=== PATIENT | female | born 1975 | race American Indian/Alaskan Native ===

== ENCOUNTER 2019-05-19 09:51 | Inpatient (IN) | payer OTHER ==
[2019-05-19] MEDS ORDERED: ONDANSETRON 4 MG/2 ML INJ IV ONE (10:11)
[2019-05-19 10:49] LABS: Basophils # (Auto) 0.1 K/mm3 (0.0-0.1); Basophils % (Auto) 1.1 % (0.0-1.8); Eosinophils # (Auto) 0.2 K/mm3 (0.0-0.4); Eosinophils % (Auto) 1.5 % (0.0-4.3); Hemoglobin 15.7 gm/dl (10.1-14.3); Lymphocytes # (Auto) 3.1 K/mm3 (1.2-5.4); Lymphocytes % (Auto) 25.4 % (13.4-35.0); Mean Corpuscular HGB Conc 33 % (30-34); Mean Corpuscular Volume 85 fl (79-97); Monocytes # (Auto) 0.7 K/mm3 (0.0-0.8); Monocytes % (Auto) 5.4 % (0.0-7.3); Platelet Count 374 K/mm3 (140-440); Red Blood Count 5.51 M/mm3 (3.65-5.03); Red Cell Distribution Width 14.5 % (13.2-15.2)
--- NOTE | 2019-05-19 11:13 | Emergency Department Report ---
HPI - General Chief Complaint: Arrhythmia/Palpitations Time Seen by Provider: 05/19/19 10:36 - HPI HPI: 44-year-old female presents to the emergency department with complaint of a 2 day history of palpitations, nausea with vomiting, abdominal pain and some stuttering slurred speech. The patient has a history of hyperthyroidism and has been in thyroid storm in the past and says that this appears similar to her. The patient used to live in [place] but is visiting here now from [place]. She says that she has been compliant with both her blood pressure medication and her methimazole. She also has a history of hypertension and [id number] diabetes. The patient does present with very elevated blood pressure. She denies any headache, vision change, chest pain, shortness of breath, lower extremity swelling. She has not taken anything for her symptoms prior to presentation today. ED Past Medical Hx - Past Medical History Previous Medical History?: Yes Hx Hypertension: Yes Hx Congestive Heart Failure: No Hx Diabetes: Yes Hx Asthma: No Hx COPD: No Additional medical history: Grave's Disease - Surgical History Hx Appendectomy: Yes - Social History Smoking Status: Never Smoker Substance Use Type: Marijuana - Medications Home Medications: Home Medications Medication Instructions Recorded Confirmed Last Taken Type Aspirin [Aspirin BABY CHEW TAB] 81 mg PO QDAY #30 tab.chew 04/26/15 Unknown Rx AtorvaSTATin [Lipitor] 40 mg PO QHS #30 tablet 04/26/15 Unknown Rx Ciprofloxacin HCl [Ciprofloxacin 500 mg PO Q12H #10 tab 04/26/15 Unknown Rx TAB] amLODIPine 5 mg PO QDAY #30 tablet 04/26/15 Unknown Rx atenoloL [Tenormin] 50 mg PO DAILY #30 tablet 04/26/15 Unknown Rx guaiFENesin DM [Robitussin Dm] 10 ml PO Q8H PRN 10 Days oral.liqd 04/26/15 Unknown Rx hydroCHLOROthiazide [HCTZ] 25 mg PO QDAY #30 tablet 04/26/15 Unknown Rx lisinopriL [Zestril TAB] 40 mg PO QDAY #30 tablet 04/26/15 Unknown Rx ED Review of Systems ROS: Stated complaint: RAPID HEART BEAT Other details as noted in HPI Comment: All other systems reviewed and negative Constitutional: denies: chills, fever Eyes: denies: eye pain, vision change ENT: denies: ear pain, throat pain Respiratory: denies: cough, shortness of breath Cardiovascular: palpitations. denies: chest pain, edema Gastrointestinal: abdominal pain, nausea, vomiting Genitourinary: denies: dysuria, discharge Musculoskeletal: denies: back pain, arthralgia Skin: denies: rash, lesions Neurological: other (stuttering slurred speech). denies: headache, weakness Physical Exam - Physical Exam Vital Signs: Vital Signs 05/19/19 10:02 Temperature 98.9 F Pulse Rate 92 H Respiratory 18 Rate Blood Pressure 206/116 O2 Sat by Pulse 100 Oximetry Physical Exam: GENERAL: The patient is well-developed well-nourished. HEENT: Normocephalic. Atraumatic. Patient has moist mucous membranes. EYES: Extraocular motions are intact. Pupils equal and reactive to light bilaterally. No nystagmus. NECK: Supple. Trachea is midline CHEST/LUNGS: Clear to auscultation. There is no respiratory distress noted. HEART/CARDIOVASCULAR: Regular. There is no tachycardia. ABDOMEN: Abdomen is soft. Mild generalized abdominal tenderness to palpation. No guarding. Patient has normal bowel sounds. There is no abdominal distention. SKIN: Skin is warm and dry. NEURO: The patient is awake, alert, and oriented. The patient is cooperative. No motor or sensory deficits. Patient has some stuttering slurred speech. Cranial nerves II through XII grossly intact. No pronator drift. No dysmetria. No facial asymmetry. Patient is slightly tremulous to the right upper extremity when it is extended. MUSCULOSKELETAL: There is no tenderness or deformity. There is no limitation range of motion. There is no evidence of acute injury. ED Course Vital Signs 05/19/19 10:02 Temperature 98.9 F Pulse Rate 92 H Respiratory 18 Rate Blood Pressure 206/116 O2 Sat by Pulse 100 Oximetry ED Medical Decision Making - Lab Data Result diagrams: 05/19/19 10:19 05/19/19 11:18 - EKG Data -: EKG Interpreted by Me EKG shows normal: sinus rhythm, axis, intervals, QRS complexes, ST-T waves Rate: normal - EKG Data When compared to previous EKG there are: previous EKG unavailable Interpretation: normal EKG - Radiology Data Radiology results: report reviewed, image reviewed interpreted by me: Abdominal x-ray shows nonspecific nonobstructive bowel gas NONENHANCED CT SCAN OF THE HEAD: INDICATION / CLINICAL INFORMATION: 44 years Female; Headache, slurred speech. TECHNIQUE: Routine CT head without contrast. All CT scans at this location are performed using CT dose reduction for ALARA by means of automated exposure control. COMPARISON: None. FINDINGS: BRAIN / INTRACRANIAL CONTENTS: No acute hemorrhage, mass effect, midline shift, hydrocephalus, or acute, large territorial infarct. No chronic infarct or focal atrophy. Normal brain volume and ventricular/sulcal size for age. No significant white matter abnormality. CRANIOCERVICAL JUNCTION: No significant abnormality. ORBITS: No significant abnormality of visualized orbits. SINUSES / MASTOIDS: No significant abnormality of the visualized paranasal sinuses or mastoid air cells. ADDITIONAL FINDINGS: None. IMPRESSION: Normal nonenhanced CT scan of the brain. - Medical Decision Making This patient presents to the emergency department with complaint of nausea and vomiting, some mild abdominal pain and some stuttering slurred speech that has been going on for the past 2 days. The patient also says that she has been in thyroid storm in the past and these are the symptoms that occurred previously. A CT scan of head without contrast was completed that does not show any bleed, shift, mass, ischemia, or any other acute process. The patient is a 1 on the NIH stroke scale for the mild dysarthria, even though it is more of a stuttering speech. However the patient is not a TPA candidate anyways as her symptoms began about 2 days ago and she is outside of the TPA window. Her symptoms are also not consistent with any type of large vessel occlusion. Patient's labs show some hyperglycemia with a blood sugar of 280 but there is no elevated anion gap and this does not appear to be consistent with diabetic ketoacidosis or HHNK. The TSH level is 0.023 and the free T4 is at 1.73. The patient's symptoms were inputted into the Ulrich Wurtofsky scale that came back showing impending thyroid storm. This is given her initial heart rate of 92, her nausea and vomiting, some mild agitation, some tremulousness. For these reasons the patient will be admitted to the hospital for further evaluation and treatment and was accepted for admission by the hospitalist, Dr. Ramey. - Differential Diagnosis CVA, TIA, Thyroid Storm, DKA Critical Care Time: No Critical care attestation.: If time is entered above; I have spent that time in minutes in the direct care of this critically ill patient, excluding procedure time. ED Disposition Clinical Impression: Hypertensive urgency Hypertension Qualifiers: Hypertension type: essential hypertension Qualified Code(s): I10 - Essential (primary) hypertension Thyroid storm Qualifiers: Thyrotoxicosis type: unspecified thyrotoxicosis type Qualified Code(s): E05.91 - Thyrotoxicosis, unspecified with thyrotoxic crisis or storm Disposition: OP ADMIT IP TO THIS HOSP Is pt being admited?: Yes Condition: Fair Time of Disposition: 14:15 - Assessment Assessment Interval: Baseline - Level of Consciousness 1a. Level of Consciousness: alert/keenly responsive - LOC Questions 1b. LOC Questions: answers both correctly - LOC Command 1c. LOC Commands: performs tasks correctly - Best Gaze 2. Best Gaze: normal - Visual 3. Visual: no visual loss - Facial Palsy 4. Facial Palsy: normal symmetrical movement - Motor Arm 5a. Motor Arm Left: no drift 5b. Motor Arm Right: no drift - Motor Leg 6a. Motor Leg Left: no drift 6b. Motor Leg Right: no drift - Limb Ataxia 7. Limb Ataxia: absent - Sensory 8. Sensory: normal - Best Language 9. Best Language: no aphasia - Dysarthria 10. Dysarthria: mild/moderate dysarthria - Extinction and Inattention 11. Extinction/Inattention: no abnormality - Scoring Total Score: 1 Stroke Severity: Minor Stroke
[2019-05-19 11:51] LABS: INR 0.96 (0.87-1.13)
[2019-05-19 11:53] LABS: Alanine Aminotransferase 18 units/L (7-56); Albumin 3.4 g/dL (3.9-5); BUN/Creatinine Ratio 17; Blood Urea Nitrogen 12 mg/dL (7-17); Calcium 8.8 mg/dL (8.4-10.2); Hemolysis Index 14
[2019-05-19 11:58] LABS: Free T4 (Free Thyroxine) 1.73 ng/dL (0.76-1.46)
--- NOTE | 2019-05-19 13:24 | XRay Report ---
ABDOMEN 2 VIEW(S) INDICATION / CLINICAL INFORMATION: Abd pain. COMPARISON: None available. FINDINGS: TUBES / LINES: None. BOWEL GAS PATTERN: Scattered gas in a nonobstructive fashion. No free air or significant constipation . ADDITIONAL FINDINGS: No significant additional findings. IMPRESSION: No significant abnormality. Signer Name: Chuy Barba MD Signed: 05/19/2019 1:20 PM Workstation Name: [id number]
--- NOTE | 2019-05-19 14:03 | Cat Scan Report ---
NONENHANCED CT SCAN OF THE HEAD: INDICATION / CLINICAL INFORMATION: 44 years Female; Headache, slurred speech. TECHNIQUE: Routine CT head without contrast. All CT scans at this location are performed using CT dos e reduction for ALARA by means of automated exposure control. COMPARISON: None. FINDINGS: BRAIN / INTRACRANIAL CONTENTS: No acute hemorrhage, mass effect, midline shift, hydrocephalus, or acu te, large territorial infarct. No chronic infarct or focal atrophy. Normal brain volume and ventricul ar/sulcal size for age. No significant white matter abnormality. CRANIOCERVICAL JUNCTION: No significant abnormality. ORBITS: No significant abnormality of visualized orbits. SINUSES / MASTOIDS: No significant abnormality of the visualized paranasal sinuses or mastoid air henrry ls. ADDITIONAL FINDINGS: None. IMPRESSION: Normal nonenhanced CT scan of the brain. Signer Name: Minh Herrera MD Signed: 05/19/2019 1:58 PM Workstation Name: [id number]
[2019-05-19 16:57] LABS: Amphetamine Screen,Urine PRESUMPTIVE NEGATIVE; Benzodiazepines Screen,Urine PRESUMPTIVE NEGATIVE; Cocaine Screen,Urine PRESUMPTIVE NEGATIVE; Methadone Screen,Urine PRESUMPTIVE NEGATIVE; Opiate Screen,Urine PRESUMPTIVE NEGATIVE
[2019-05-19 17:09] LABS: Cannabinoid Screen,Urine PRESUMPTIVE POSITIVE
[2019-05-19] MEDS ORDERED: ONDANSETRON 4 MG/2 ML INJ IV PRN (20:25)
[2019-05-19] MEDS ORDERED: DEXTROSE 50% IN WATER (25GM) 50 ML SYRINGE IV PRN (20:25)
[2019-05-19] MEDS ORDERED: ACETAMINOPHEN 325 MG TAB PO PRN (20:25)
--- NOTE | 2019-05-19 20:29 | History and Physical Report ---
History of Present Illness Date of admission: 05/19/19 14:16 Chief complaint: My thyroid is acting up History of present illness: 44-year-old woman with history of Graves' disease who presents to the hospital complaining of 2 days of palpitations , nausea, vomiting, abdominal pain and tremors and she feels like she is stuttering when she is speaking. The patient states that she has had thyroid storm in the past and her symptoms are consistent with hypothyroidism. She states that she is compliant with all her medications and has not run out of any of them. She takes methimazole and p ropranolol. She actually denies chest pain and denies shortness of breath. She denies fevers chills or sick contacts. Past Medical History: hypertension, other (Graves dz) Past Surgical History: appendectomy Social history: full code. denies: smoking, alcohol abuse, prescription drug abuse, IV drug use Family history: hypertension (father) Medications and Allergies Allergies Allergy/AdvReac Type Severity Reaction Status Date / Time apple Allergy Swelling Verified 04/22/15 07:14 Home Medications Medication Instructions Recorded Confirmed Last Taken Type hydroCHLOROthiazide [HCTZ] 25 mg PO QDAY #30 tablet 04/26/15 05/19/19 Unknown Rx AtorvaSTATin [Lipitor] 40 mg PO DAILY 05/19/19 05/19/19 Unknown History Benztropine [Cogentin] 1 mg PO DAILY 05/19/19 05/19/19 Unknown History Clonidine HCl [Catapres] 0.3 mg PO Q8HR 05/19/19 05/19/19 Unknown History Gabapentin [Neurontin] 300 mg PO Q8HR 05/19/19 05/19/19 Unknown History Glimepiride [Amaryl] 4 mg PO DAILY 05/19/19 05/19/19 Unknown History Metformin HCl [metFORMIN] 1,000 mg PO BIDWM 05/19/19 05/19/19 Unknown History Methimazole [Tapazole] 10 mg PO DAILY 05/19/19 05/19/19 Unknown History Perphenazine 2 mg PO TID 05/19/19 05/19/19 Unknown History Propranolol [Inderal] 80 mg PO BID 05/19/19 05/19/19 Unknown History SEROquel 100 mg PO QHS 05/19/19 05/19/19 Unknown History Sertraline [Zoloft] 100 mg PO QDAY 05/19/19 05/19/19 Unknown History amLODIPine 10 mg PO QDAY 05/19/19 05/19/19 Unknown History Review of Systems All systems: negative (As stated in HPI) Exam - Constitutional Vitals: Temp Pulse Resp BP Pulse Ox 98.9 F 100 H 16 177/107 97 05/19/19 10:02 05/19/19 18:03 05/19/19 11:49 05/19/19 18:03 05/19/19 18:03 General appearance: Present: mild distress, well-nourished - EENT Eyes: Present: PERRL ENT: hearing intact, clear oral mucosa - Neck Neck: Present: supple, normal ROM - Respiratory Respiratory effort: normal Respiratory: bilateral: CTA - Cardiovascular Rhythm: other (Tachycardic) Heart Sounds: Present: S1 & S2. Absent: rub, click - Extremities Extremities: pulses symmetrical, No edema Peripheral Pulses: within normal limits - Abdominal General gastrointestinal: Present: soft, non-tender, non-distended, normal bowel sounds Female genitourinary: Present: normal - Integumentary Integumentary: Present: clear, warm, dry - Musculoskeletal Musculoskeletal: gait normal, strength equal bilaterally - Psychiatric Psychiatric: appropriate mood/affect, intact judgment & insight - Neurologic Neurologic: CNII-XII intact, moves all extremities Results - Labs CBC & Chem 7: 05/19/19 10:19 05/19/19 11:18 Labs: Laboratory Last Values WBC 12.3 K/mm3 (4.5-11.0) H 05/19/19 10:19 RBC 5.51 M/mm3 (3.65-5.03) H 05/19/19 10:19 Hgb 15.7 gm/dl (10.1-14.3) H 05/19/19 10:19 Hct 47.0 % (30.3-42.9) H 05/19/19 10:19 MCV 85 fl (79-97) 05/19/19 10:19 MCH 29 pg (28-32) 05/19/19 10:19 MCHC 33 % (30-34) 05/19/19 10:19 RDW 14.5 % (13.2-15.2) 05/19/19 10:19 Plt Count 374 K/mm3 (140-440) 05/19/19 10:19 Lymph % (Auto) 25.4 % (13.4-35.0) 05/19/19 10:19 [place] % (Auto) 5.4 % (0.0-7.3) 05/19/19 10:19 Eos % (Auto) 1.5 % (0.0-4.3) 05/19/19 10:19 Baso % (Auto) 1.1 % (0.0-1.8) 05/19/19 10:19 Lymph # 3.1 K/mm3 (1.2-5.4) 05/19/19 10:19 [place] # 0.7 K/mm3 (0.0-0.8) 05/19/19 10:19 Eos # 0.2 K/mm3 (0.0-0.4) 05/19/19 10:19 Baso # 0.1 K/mm3 (0.0-0.1) 05/19/19 10:19 Seg Neutrophils % 66.6 % (40.0-70.0) 05/19/19 10:19 Seg Neutrophils # 8.2 K/mm3 (1.8-7.7) H 05/19/19 10:19 PT 12.9 Sec. (12.2-14.9) 05/19/19 11:18 INR 0.96 (0.87-1.13) 05/19/19 11:18 Sodium 136 mmol/L (137-145) L 05/19/19 11:18 Potassium 4.3 mmol/L (3.6-5.0) 05/19/19 11:18 Chloride 103.2 mmol/L (98-107) 05/19/19 11:18 Carbon Dioxide 19 mmol/L (22-30) L 05/19/19 11:18 Anion Gap 18 mmol/L 05/19/19 11:18 BUN 12 mg/dL (7-17) 05/19/19 11:18 Creatinine 0.7 mg/dL (0.7-1.2) 05/19/19 11:18 Estimated GFR > 60 ml/min 05/19/19 11:18 BUN/Creatinine Ratio 17 % 05/19/19 11:18 Glucose 282 mg/dL (65-100) H 05/19/19 11:18 Calcium 8.8 mg/dL (8.4-10.2) 05/19/19 11:18 Total Bilirubin 0.30 mg/dL (0.1-1.2) 05/19/19 11:18 AST 21 units/L (5-40) 05/19/19 11:18 ALT 18 units/L (7-56) 05/19/19 11:18 Alkaline Phosphatase 62 units/L (35-129) 05/19/19 11:18 Troponin T < 0.010 ng/mL (0.00-0.029) 05/19/19 11:18 Total Protein 7.1 g/dL (6.3-8.2) 05/19/19 11:18 Albumin 3.4 g/dL (3.9-5) L 05/19/19 11:18 Albumin/Globulin Ratio 0.9 % 05/19/19 11:18 TSH 0.027 mlU/mL (0.270-4.200) L 05/19/19 11:18 Free T4 1.73 ng/dL (0.76-1.46) H 05/19/19 11:18 HCG, Qual Negative (Negative) 05/19/19 10:19 Urine Opiates Screen Presumptive negative 05/19/19 Unknown Urine Methadone Screen Presumptive negative 05/19/19 Unknown Ur Barbiturates Screen Presumptive negative 05/19/19 Unknown Ur Phencyclidine Scrn Presumptive negative 05/19/19 Unknown Ur Amphetamines Screen Presumptive negative 05/19/19 Unknown U Benzodiazepines Scrn Presumptive negative 05/19/19 Unknown Urine Cocaine Screen Presumptive negative 05/19/19 Unknown U Marijuana (THC) Screen Presumptive positive 05/19/19 Unknown Drugs of Abuse Note Disclamer 05/19/19 Unknown Assessment and Plan Assessment and plan: 44-year-old woman who presents with palpitations, nausea, vomiting, nervousness CT head no acute findings Abdominal x-ray no acute findings History of Graves' disease with active hyperthyroidism Will increase dose of methimazole, continue propranolol at current dose Hypertensive urgency Optimize BP meds Intractable nausea, vomiting Most likely due to hyperthyroidism, treat underlying cause, antiemetics and IV fluids Diabetes Consistent carbohydrate diet, sliding scale insulin, check A1c Sirs without organ dysfunction, no evidence of infection, etiology is likely hyperthyroidism Preventative health counseling performed for 17 minutes Obesity encouraged weight loss and lifestyle modification DVT prophylaxis Lovenox
[2019-05-19] MEDS ORDERED: NON-FORMULARY EACH (Metformin Hcl [Metformin] 1,000 MG) PO SCH (20:30)
[2019-05-19] MEDS ORDERED: hydrALAZINE 20 MG/1 ML INJ IV PRN (20:33)
[2019-05-19] MEDS ORDERED: NON-FORMULARY EACH (Seroquel 100 MG) PO SCH (22:00)
[2019-05-19] MEDS ORDERED: NON-FORMULARY EACH (Clonidine Hcl [Catapres] 0.3 MG) PO SCH (22:00)
[2019-05-19] MEDS: QUEtiapine 100 MG TAB PO SCH (23:00)
[2019-05-19] MEDS: methIMAzole 5 MG TAB PO SCH (23:00)
[2019-05-19] MEDS: GABAPENTIN 300 MG CAP PO SCH (23:00)
[2019-05-19] MEDS: cloNIDine 0.1 MG TAB PO SCH (23:00)
[2019-05-19] MEDS: ENOXAPARIN 40 MG/0.4 ML INJ SUB-Q SCH (23:00)
[2019-05-19] MEDS: metFORMIN 500 MG TAB PO SCH (23:25)
[2019-05-19] MEDS: PROPRANOLOL LA 80 MG CAP PO SCH (23:55)
[2019-05-20] MEDS: INSULIN LISPRO 100 UNIT/ML SUB-Q SCH ×5 (00:41→22:38)
[2019-05-20] MEDS: GABAPENTIN 300 MG CAP PO SCH ×3 (06:50→22:35)
[2019-05-20] MEDS: cloNIDine 0.1 MG TAB PO SCH ×3 (06:55→22:34)
[2019-05-20] MEDS ORDERED: PERPHENAZINE 2 MG PO SCH (08:00)
[2019-05-20] MEDS: PERPHENAZINE 4 MG TAB PO SCH ×3 (08:49→22:37)
[2019-05-20] MEDS: GLIMEPIRIDE 4 MG TAB PO SCH (09:36)
[2019-05-20] MEDS: metFORMIN 500 MG TAB PO SCH ×2 (09:36→17:07)
[2019-05-20] MEDS: hydroCHLOROthiazide 25 MG TAB PO SCH (09:37)
[2019-05-20] MEDS: amLODIPine 10 MG TAB PO SCH (09:37)
[2019-05-20] MEDS: SERTRALINE 100 MG TAB PO SCH (09:37)
[2019-05-20] MEDS: BENZTROPINE 1 MG TAB PO SCH (09:38)
[2019-05-20] MEDS: methIMAzole 5 MG TAB PO SCH (09:38)
[2019-05-20] MEDS: PROPRANOLOL LA 80 MG CAP PO SCH (11:53)
--- NOTE | 2019-05-20 12:16 | Progress Note ---
Assessment and Plan Assessment and plan: Patient is 44-year-old woman who presents with palpitations, nausea, vomiting, tremors. CT head no acute findings Abdominal x-ray no acute findings History of Graves' disease with active hyperthyroidism Increased dose of methimazole, continue propranolol at current dose Hypertensive urgency Optimize BP meds Intractable nausea, vomiting Most likely due to hyperthyroidism, treat underlying cause, antiemetics and IV fluids Diabetes mellitus Consistent carbohydrate diet, sliding scale insulin, check A1c SIRS without organ dysfunction, no evidence of infection, etiology is likely hyperthyroidism Obesity encouraged weight loss and lifestyle modification DVT prophylaxis Lovenox History Interval history: nausea, vomiting,abd pain, palpitation, tremors Hospitalist Physical - Physical exam Narrative exam: GEN: Not in acute distress, lying in bed, obese HEENT: Normocephalic, atraumatic, Neck: supple, No JVD Lungs: Clear to auscultation, no crackles heart;S1 and S2 reg, tachycardia, no murmurs Abd:soft, non tender, non distended, normal bowel sounds Ext: No edema, no clubbing, no cyanosis Neuro: Awake,alert,oriented X 3, moves all ext, tremors - Constitutional Vitals: Temp Pulse Resp BP Pulse Ox 97.1 F L 82 18 139/68 96 05/20/19 07:59 05/20/19 11:53 05/20/19 07:59 05/20/19 11:53 05/20/19 07:59 General appearance: Present: obese Results - Labs CBC & Chem 7: 05/19/19 10:19 05/19/19 11:18 Labs: Laboratory Last Values WBC 12.3 K/mm3 (4.5-11.0) H 05/19/19 10:19 RBC 5.51 M/mm3 (3.65-5.03) H 05/19/19 10:19 Hgb 15.7 gm/dl (10.1-14.3) H 05/19/19 10:19 Hct 47.0 % (30.3-42.9) H 05/19/19 10:19 MCV 85 fl (79-97) 05/19/19 10:19 MCH 29 pg (28-32) 05/19/19 10:19 MCHC 33 % (30-34) 05/19/19 10:19 RDW 14.5 % (13.2-15.2) 05/19/19 10:19 Plt Count 374 K/mm3 (140-440) 05/19/19 10:19 Lymph % (Auto) 25.4 % (13.4-35.0) 05/19/19 10:19 [place] % (Auto) 5.4 % (0.0-7.3) 05/19/19 10:19 Eos % (Auto) 1.5 % (0.0-4.3) 05/19/19 10:19 Baso % (Auto) 1.1 % (0.0-1.8) 05/19/19 10:19 Lymph # 3.1 K/mm3 (1.2-5.4) 05/19/19 10:19 [place] # 0.7 K/mm3 (0.0-0.8) 05/19/19 10:19 Eos # 0.2 K/mm3 (0.0-0.4) 05/19/19 10:19 Baso # 0.1 K/mm3 (0.0-0.1) 05/19/19 10:19 Seg Neutrophils % 66.6 % (40.0-70.0) 05/19/19 10:19 Seg Neutrophils # 8.2 K/mm3 (1.8-7.7) H 05/19/19 10:19 PT 12.9 Sec. (12.2-14.9) 05/19/19 11:18 INR 0.96 (0.87-1.13) 05/19/19 11:18 Sodium 136 mmol/L (137-145) L 05/19/19 11:18 Potassium 4.3 mmol/L (3.6-5.0) 05/19/19 11:18 Chloride 103.2 mmol/L (98-107) 05/19/19 11:18 Carbon Dioxide 19 mmol/L (22-30) L 05/19/19 11:18 Anion Gap 18 mmol/L 05/19/19 11:18 BUN 12 mg/dL (7-17) 05/19/19 11:18 Creatinine 0.7 mg/dL (0.7-1.2) 05/19/19 11:18 Estimated GFR > 60 ml/min 05/19/19 11:18 BUN/Creatinine Ratio 17 % 05/19/19 11:18 Glucose 282 mg/dL (65-100) H 05/19/19 11:18 POC Glucose 290 (70-105) H 05/20/19 12:20 Hemoglobin A1c 11.8 % (4-6) H 05/20/19 Unknown Calcium 8.8 mg/dL (8.4-10.2) 05/19/19 11:18 Total Bilirubin 0.30 mg/dL (0.1-1.2) 05/19/19 11:18 AST 21 units/L (5-40) 05/19/19 11:18 ALT 18 units/L (7-56) 05/19/19 11:18 Alkaline Phosphatase 62 units/L (35-129) 05/19/19 11:18 Troponin T < 0.010 ng/mL (0.00-0.029) 05/19/19 11:18 Total Protein 7.1 g/dL (6.3-8.2) 05/19/19 11:18 Albumin 3.4 g/dL (3.9-5) L 05/19/19 11:18 Albumin/Globulin Ratio 0.9 % 05/19/19 11:18 TSH 0.027 mlU/mL (0.270-4.200) L 05/19/19 11:18 Free T4 1.73 ng/dL (0.76-1.46) H 05/19/19 11:18 HCG, Qual Negative (Negative) 05/19/19 10:19 Urine Opiates Screen Presumptive negative 05/19/19 Unknown Urine Methadone Screen Presumptive negative 05/19/19 Unknown Ur Barbiturates Screen Presumptive negative 05/19/19 Unknown Ur Phencyclidine Scrn Presumptive negative 05/19/19 Unknown Ur Amphetamines Screen Presumptive negative 05/19/19 Unknown U Benzodiazepines Scrn Presumptive negative 05/19/19 Unknown Urine Cocaine Screen Presumptive negative 05/19/19 Unknown U Marijuana (THC) Screen Presumptive positive 05/19/19 Unknown Drugs of Abuse Note Disclamer 05/19/19 Unknown Active Medications - Current Medications Current Medications: Generic Name Dose Route Start Last Admin Trade Name Freq PRN Reason Stop Dose Admin Acetaminophen 650 mg 05/19/19 20:25 Tylenol PO Q4H PRN Pain MILD(1-3)/Fever >100.5/FLORES Amlodipine Besylate 10 mg 05/20/19 10:00 05/20/19 09:37 Amlodipine PO 10 mg QDAY ADONIS Administration Atorvastatin Calcium 40 mg 05/20/19 10:00 05/20/19 09:38 Lipitor PO 40 mg DAILY ADONIS Administration Benztropine Mesylate 1 mg 05/20/19 10:00 05/20/19 09:38 Cogentin PO 1 mg DAILY ADONIS Administration Clonidine HCl 0.3 mg 05/19/19 22:00 05/20/19 06:55 Catapres PO 0.3 mg Q8HR ADONIS Administration Dextrose 50 ml 05/19/19 20:25 D50w (25gm) Syringe IV Q30MIN PRN Hypoglycemia Protocol Enoxaparin Sodium 40 mg 05/19/19 22:00 05/19/19 23:00 Enoxaparin SUB-Q 40 mg QDAY@2200 ADONIS Administration Gabapentin 300 mg 05/19/19 22:00 05/20/19 06:50 Gabapentin PO 300 mg Q8HR ADONIS Administration Glimepiride 4 mg 05/20/19 08:00 05/20/19 09:36 Amaryl PO 4 mg QDDIAB ADONIS Administration Hydralazine HCl 10 mg 05/19/19 20:33 Apresoline IV Q4HR PRN BP >160/100 Hydrochlorothiazide 25 mg 05/20/19 10:00 05/20/19 09:37 Hctz PO 25 mg QDAY ADONIS Administration Sodium Chloride 1,000 mls @ 75 mls/hr 05/19/19 20:45 Nacl 0.9% 1000 Ml IV DIRECT ADONIS Insulin Human Lispro 0 unit 05/19/19 22:00 05/20/19 09:37 Humalog SUB-Q 2 unit ACHS ADONIS Administration Protocol Metformin HCl 1,000 mg 05/19/19 20:30 05/20/19 09:36 Glucophage PO 1,000 mg BIDDIAB ADONIS Administration Methimazole 15 mg 05/19/19 21:00 05/20/19 09:38 Tapazole PO 15 mg Q24HR ADONIS Administration Ondansetron HCl 4 mg 05/19/19 20:25 05/20/19 00:04 Zofran IV 4 mg Q8H PRN Administration Nausea And Vomiting Perphenazine 2 mg 05/20/19 08:00 05/20/19 08:49 Trilafon PO 2 mg TID ADONIS Administration Propranolol HCl 160 mg 05/19/19 21:00 05/20/19 11:53 Inderal La PO 160 mg QDAY ADONIS Administration Quetiapine Fumarate 100 mg 05/19/19 22:00 05/19/19 23:00 Seroquel PO 100 mg QHS ADONIS Administration Sertraline HCl 100 mg 05/20/19 10:00 05/20/19 09:37 Zoloft PO 100 mg QDAY ADONIS Administration Sodium Chloride 10 ml 05/19/19 22:00 05/20/19 09:38 Sodium Chloride Flush Syringe 10 Ml IV 10 ml BID ADONIS Administration Sodium Chloride 10 ml 05/19/19 20:25 Sodium Chloride Flush Syringe 10 Ml IV PRN PRN LINE FLUSH
[2019-05-20] MEDS: SODIUM CHLORIDE 0.9% 1000 ML 1,000 ML IV SCH (15:02)
--- NOTE | 2019-05-20 17:51 | Consultation ---
History of Present Illness Consult date: 05/20/19 Consult reason: tachycardia History of present illness: The patient's a 44-year-old woman admitted to the hospital with complaints of nausea and vomiting for 2 days. Cardiac consultation was requested for assessment of "tachycardia". There is a report on the emergency room triage of a sensation of a rapid heart rate, but ECG on the patient's presentation was a normal sinus rhythm at 90. A review of her telemetry strips and vital signs during the period of her hospitalization shows a heart rate that averages about 80-90. The highest heart rate was a transient 100. No tachycardia is noted. Patient's comorbidities on this presentation include defined enough hyperthyroidism, which is being managed by the medical service. Past History Past Medical History: hyperthyroidism Medications and Allergies Allergies Allergy/AdvReac Type Severity Reaction Status Date / Time apple Allergy Swelling Verified 04/22/15 07:14 Home Medications Medication Instructions Recorded Confirmed Last Taken Type hydroCHLOROthiazide [HCTZ] 25 mg PO QDAY #30 tablet 04/26/15 05/19/19 Unknown Rx AtorvaSTATin [Lipitor] 40 mg PO DAILY 05/19/19 05/19/19 Unknown History Benztropine [Cogentin] 1 mg PO DAILY 05/19/19 05/19/19 Unknown History Clonidine HCl [Catapres] 0.3 mg PO Q8HR 05/19/19 05/19/19 Unknown History Gabapentin [Neurontin] 300 mg PO Q8HR 05/19/19 05/19/19 Unknown History Glimepiride [Amaryl] 4 mg PO DAILY 05/19/19 05/19/19 Unknown History Metformin HCl [metFORMIN] 1,000 mg PO BIDWM 05/19/19 05/19/19 Unknown History Methimazole [Tapazole] 10 mg PO DAILY 05/19/19 05/19/19 Unknown History Perphenazine 2 mg PO TID 05/19/19 05/19/19 Unknown History Propranolol [Inderal] 80 mg PO BID 05/19/19 05/19/19 Unknown History SEROquel 100 mg PO QHS 05/19/19 05/19/19 Unknown History Sertraline [Zoloft] 100 mg PO QDAY 05/19/19 05/19/19 Unknown History amLODIPine 10 mg PO QDAY 05/19/19 05/19/19 Unknown History Active Meds: Active Medications Acetaminophen (Tylenol) 650 mg PO Q4H PRN PRN Reason: Pain MILD(1-3)/Fever >100.5/FLORES Amlodipine Besylate (Amlodipine) 10 mg PO QDAY [facility] Last Admin: 05/20/19 09:37 Dose: 10 mg Documented by: Atorvastatin Calcium (Lipitor) 40 mg PO DAILY [facility] Last Admin: 05/20/19 09:38 Dose: 40 mg Documented by: Benztropine Mesylate (Cogentin) 1 mg PO DAILY [facility] Last Admin: 05/20/19 09:38 Dose: 1 mg Documented by: Clonidine HCl (Catapres) 0.3 mg PO Q8HR [facility] Last Admin: 05/20/19 13:07 Dose: 0.3 mg Documented by: Dextrose (D50w (25gm) Syringe) 50 ml IV Q30MIN PRN; Protocol PRN Reason: Hypoglycemia Enoxaparin Sodium (Enoxaparin) 40 mg SUB-Q QDAY@2200 [facility] Last Admin: 05/19/19 23:00 Dose: 40 mg Documented by: Gabapentin (Gabapentin) 300 mg PO Q8HR [facility] Last Admin: 05/20/19 13:07 Dose: 300 mg Documented by: Glimepiride (Amaryl) 4 mg PO QDDIAB [facility] Last Admin: 05/20/19 09:36 Dose: 4 mg Documented by: Hydralazine HCl (Apresoline) 10 mg IV Q4HR PRN PRN Reason: BP >160/100 Hydrochlorothiazide (Hctz) 25 mg PO QDAY [facility] Last Admin: 05/20/19 09:37 Dose: 25 mg Documented by: Sodium Chloride (Nacl 0.9% 1000 Ml) 1,000 mls @ 75 mls/hr IV DIRECT [facility] Last Admin: 05/20/19 15:02 Dose: 75 mls/hr Documented by: Insulin Human Lispro (Humalog) 0 unit SUB-Q ACHS [facility]; Protocol Last Admin: 05/20/19 17:40 Dose: 2 unit Documented by: Metformin HCl (Glucophage) 1,000 mg PO BIDDIAB [facility] Last Admin: 05/20/19 17:07 Dose: 1,000 mg Documented by: Methimazole (Tapazole) 15 mg PO Q24HR [facility] Last Admin: 05/20/19 09:38 Dose: 15 mg Documented by: Ondansetron HCl (Zofran) 4 mg IV Q8H PRN PRN Reason: Nausea And Vomiting Last Admin: 05/20/19 00:04 Dose: 4 mg Documented by: Perphenazine (Trilafon) 2 mg PO TID [facility] Last Admin: 05/20/19 13:08 Dose: 2 mg Documented by: Propranolol HCl (Inderal La) 160 mg PO QDAY [facility] Last Admin: 05/20/19 11:53 Dose: 160 mg Documented by: Quetiapine Fumarate (Seroquel) 100 mg PO QHS [facility] Last Admin: 05/19/19 23:00 Dose: 100 mg Documented by: Sertraline HCl (Zoloft) 100 mg PO QDAY [facility] Last Admin: 05/20/19 09:37 Dose: 100 mg Documented by: Sodium Chloride (Sodium Chloride Flush Syringe 10 Ml) 10 ml IV BID [facility] Last Admin: 05/20/19 09:38 Dose: 10 ml Documented by: Sodium Chloride (Sodium Chloride Flush Syringe 10 Ml) 10 ml IV PRN PRN PRN Reason: LINE FLUSH Review of Systems Cardiovascular: palpitations, no chest pain, no orthopnea, no rapid/irregular heart beat, no edema, no syncope, no lightheadedness, no shortness of breath Physical Examination Vital Signs Temp Pulse Resp BP Pulse Ox 98.9 F 92 H 18 206/116 100 05/19/19 10:02 05/19/19 10:02 05/19/19 10:02 05/19/19 10:02 05/19/19 10:02 General appearance: no acute distress HEENT: Positive: PERRL Neck: Positive: neck supple Cardiac: Positive: Reg Rate and Rhythm Lungs: Positive: clear to auscultation Neuro: Positive: Grossly Intact Abdomen: Positive: Soft Female genitourinary: deferred Skin: Positive: Clear Extremities: Absent: edema Results 05/19/19 10:19 05/19/19 11:18 EKG interpretations - Telemetry EKG Rhythm: Sinus Rhythm Assessment and Plan - Patient Problems (1) Tachycardia Current Visit: Yes Status: Acute Plan to address problem: There is no evident tachycardia on patient's presentation or during this hospitalization. 12-lead ECG is normal. No further cardiac workup is indicated, we'll sign off.
[2019-05-20] MEDS: ENOXAPARIN 40 MG/0.4 ML INJ SUB-Q SCH (22:34)
[2019-05-20] MEDS: QUEtiapine 100 MG TAB PO SCH (22:35)
[2019-05-21] MEDS: cloNIDine 0.1 MG TAB PO SCH (06:32)
[2019-05-21] MEDS: SODIUM CHLORIDE 0.9% 1000 ML 1,000 ML IV SCH (06:33)
[2019-05-21] MEDS: GABAPENTIN 300 MG CAP PO SCH (06:33)
[2019-05-21 06:37] LABS: Hemoglobin 14.6 gm/dl (10.1-14.3); Mean Corpuscular HGB Conc 33 % (30-34); Mean Corpuscular Volume 85 fl (79-97); Platelet Count 272 K/mm3 (140-440); Red Blood Count 5.17 M/mm3 (3.65-5.03); Red Cell Distribution Width 14.4 % (13.2-15.2)
[2019-05-21 07:01] LABS: BUN/Creatinine Ratio 18; Blood Urea Nitrogen 11 mg/dL (7-17); Calcium 8.2 mg/dL (8.4-10.2); Hemolysis Index 27
[2019-05-21] MEDS: INSULIN LISPRO 100 UNIT/ML SUB-Q SCH (09:10)
[2019-05-21] MEDS: PERPHENAZINE 4 MG TAB PO SCH (09:13)
[2019-05-21] MEDS: PROPRANOLOL LA 80 MG CAP PO SCH (09:19)
[2019-05-21] MEDS: BENZTROPINE 1 MG TAB PO SCH (09:21)
[2019-05-21] MEDS: SERTRALINE 100 MG TAB PO SCH (09:23)
[2019-05-21] MEDS: methIMAzole 5 MG TAB PO SCH (09:23)
[2019-05-21] MEDS: hydroCHLOROthiazide 25 MG TAB PO SCH (09:25)
[2019-05-21] MEDS: metFORMIN 500 MG TAB PO SCH (09:25)
[2019-05-21] MEDS: GLIMEPIRIDE 4 MG TAB PO SCH (09:25)
[2019-05-21] MEDS: amLODIPine 10 MG TAB PO SCH (09:26)
[2019-05-21 09:50] VITALS: BP 170/94
--- NOTE | 2019-05-21 11:29 | Discharge Summary ---
Providers - Providers Date of Admission: 05/19/19 14:16 Date of discharge: 05/21/19 Attending physician: KEESHA NIETO 05/19/19 20:26 Consult to Dietitian/Nutrition [CONS] Routine Physician Instructions: Reason For Exam: Reason for Consult: Diet education Primary care physician: ORACLE [facility] CONSULTANT Hospitalization Condition: Fair Disposition: DC-01 TO HOME OR SELFCARE Exam - Constitutional Vitals: Temp Pulse Resp BP Pulse Ox 97.9 F 77 18 170/94 98 05/21/19 09:45 05/21/19 09:45 05/21/19 09:45 05/21/19 09:45 05/21/19 09:45 Plan Activity: advance as tolerated Diet: low fat, low cholesterol, low salt Plan of Treatment: 1.Follow up with PCP in 1 week. Follow up with: PRIMARY CARE, [Primary Care Provider] - 3-5 Days Prescriptions: methIMAzole [Tapazole] 15 mg PO Q24HR #90 tablet
--- NOTE | 2019-05-21 14:47 | Consultation ---
History of Present Illness - Reason for Consult Consult date: 05/21/19 Reason for consult: psychiatric assessment - Chief Complaint Chief complaint: mr park is a 60 year old male, consult was done because of patient been combative, he is aaox1, he denies SI/HI and AVH. Whwn ask if he knew why he was here he said, "I cant find my glasses". sitter remain at bedside. the patient kept covering his head with the sheet.he appears agitated. ROS Constitutional:Negative for weight loss ENT: Negative for stridor Respiratory: Negative for cough All systems reviewed and are negative Past Medical Hx: Denies Psychiatric History: Previous psychiatric diagnoses: none Previous admits: denies Suicidal attempts in past: denies Past medications tried: denies Outpatient treatment: denies Substance abuse: denies Social History Lives with family Unemployed Legal hx: no Highest grade complete: 12th Family Psychiatric History None reported Mental Status Exam Appearance:anxious Behavior: cooperative. Mood: "fine Affect: Thought Process: Speech: normal, low Thought Content Harmfulness: Denies Hallucinations: denies Delusions: denies Consciousness: Alert Cognition/Memory: forget Insight/Judgment:limited Assessment agitation Recommendations: medication - start vistaril 25mg prn agitation Based on my evaluation, the patient is unable to demonstrate understanding, appreciation, or reasoning regarding their medical condition and need for treatment. At this time I do not believe that the patient has decision-making capacity. Please note that decision-making capacity can be regained, but until that time a surrogate decision maker should be appointed for the patient. The surrogate decision maker should be found using the below: 1. If the patient has a healthcare proxy, they should be contacted. 2. If there is no healthcare proxy, efforts should be made to identify an appropriate substitute decision maker (most commonly a family member or members), with the understanding that ultimately, it may be necessary to have a guardian appointed in order to facilitate legal decision making. 3. In the case of a true emergency, treatment may be provided without consent, but should be discussed with the office of senior vice president & general counsel and/or Ethics as soon as possible. In the 3 situations above, attempts to contact a substitute decision maker or the office of senior vice president & general counsel should not delay the delivery of emergent care where such delay would compromise the patient's well being. will follow patient Medications and Allergies Medications and Allergies Allergies Allergy/AdvReac Type Severity Reaction Status Date / Time apple Allergy Swelling Verified 04/22/15 07:14 Home Medications Medication Instructions Recorded Confirmed Last Taken Type hydroCHLOROthiazide [HCTZ] 25 mg PO QDAY #30 tablet 04/26/15 05/19/19 Unknown Rx AtorvaSTATin [Lipitor] 40 mg PO DAILY 05/19/19 05/19/19 Unknown History Benztropine [Cogentin] 1 mg PO DAILY 05/19/19 05/19/19 Unknown History Clonidine HCl [Catapres] 0.3 mg PO Q8HR 05/19/19 05/19/19 Unknown History Gabapentin 300 mg PO Q8HR 05/19/19 05/19/19 Unknown History Glimepiride [Amaryl] 4 mg PO DAILY 05/19/19 05/19/19 Unknown History Metformin HCl [metFORMIN] 1,000 mg PO BIDWM 05/19/19 05/19/19 Unknown History Perphenazine 2 mg PO TID 05/19/19 05/19/19 Unknown History Propranolol [Inderal] 80 mg PO BID 05/19/19 05/19/19 Unknown History SEROquel 100 mg PO QHS 05/19/19 05/19/19 Unknown History Sertraline [Zoloft] 100 mg PO QDAY 05/19/19 05/19/19 Unknown History amLODIPine 10 mg PO QDAY 05/19/19 05/19/19 Unknown History methIMAzole [Tapazole] 15 mg PO Q24HR #90 tablet 05/21/19 Unknown Rx Active Meds: Active Medications Acetaminophen (Tylenol) 650 mg PO Q4H PRN PRN Reason: Pain MILD(1-3)/Fever >100.5/FLORES Amlodipine Besylate (Amlodipine) 10 mg PO QDAY [facility] Last Admin: 05/21/19 09:26 Dose: 10 mg Documented by: Atorvastatin Calcium (Lipitor) 40 mg PO DAILY [facility] Last Admin: 05/21/19 09:25 Dose: 40 mg Documented by: Benztropine Mesylate (Cogentin) 1 mg PO DAILY [facility] Last Admin: 05/21/19 09:21 Dose: 1 mg Documented by: Clonidine HCl (Catapres) 0.3 mg PO Q8HR [facility] Last Admin: 05/21/19 06:32 Dose: 0.3 mg Documented by: Dextrose (D50w (25gm) Syringe) 50 ml IV Q30MIN PRN; Protocol PRN Reason: Hypoglycemia Enoxaparin Sodium (Enoxaparin) 40 mg SUB-Q QDAY@2200 [facility] Last Admin: 05/20/19 22:34 Dose: 40 mg Documented by: Gabapentin (Gabapentin) 300 mg PO Q8HR [facility] Last Admin: 05/21/19 06:33 Dose: 300 mg Documented by: Glimepiride (Amaryl) 4 mg PO QDDIAB [facility] Last Admin: 05/21/19 09:25 Dose: 4 mg Documented by: Hydralazine HCl (Apresoline) 10 mg IV Q4HR PRN PRN Reason: BP >160/100 Hydrochlorothiazide (Hctz) 25 mg PO QDAY [facility] Last Admin: 05/21/19 09:25 Dose: 25 mg Documented by: Sodium Chloride (Nacl 0.9% 1000 Ml) 1,000 mls @ 75 mls/hr IV DIRECT [facility] Last Admin: 05/21/19 06:33 Dose: 75 mls/hr Documented by: Insulin Human Lispro (Humalog) 0 unit SUB-Q ACHS [facility]; Protocol Last Admin: 05/21/19 09:10 Dose: 2 unit Documented by: Metformin HCl (Glucophage) 1,000 mg PO BIDDIAB [facility] Last Admin: 05/21/19 09:25 Dose: 1,000 mg Documented by: Methimazole (Tapazole) 15 mg PO Q24HR [facility] Last Admin: 05/21/19 09:23 Dose: 15 mg Documented by: Ondansetron HCl (Zofran) 4 mg IV Q8H PRN PRN Reason: Nausea And Vomiting Last Admin: 05/20/19 00:04 Dose: 4 mg Documented by: Perphenazine (Trilafon) 2 mg PO TID [facility] Last Admin: 05/21/19 09:13 Dose: 2 mg Documented by: Propranolol HCl (Inderal La) 160 mg PO QDAY [facility] Last Admin: 05/21/19 09:19 Dose: 160 mg Documented by: Quetiapine Fumarate (Seroquel) 100 mg PO QHS [facility] Last Admin: 05/20/19 22:35 Dose: 100 mg Documented by: Sertraline HCl (Zoloft) 100 mg PO QDAY [facility] Last Admin: 05/21/19 09:23 Dose: 100 mg Documented by: Sodium Chloride (Sodium Chloride Flush Syringe 10 Ml) 10 ml IV BID [facility] Last Admin: 05/21/19 09:26 Dose: 10 ml Documented by: Sodium Chloride (Sodium Chloride Flush Syringe 10 Ml) 10 ml IV PRN PRN PRN Reason: LINE FLUSH Mental Status Exam - Vital signs Last Vital Signs Temp 97.9 F 05/21/19 09:45 Pulse 77 05/21/19 09:45 Resp 18 05/21/19 09:45 BP 170/94 05/21/19 09:45 Pulse Ox 98 05/21/19 09:45 Results Result Diagrams: 05/21/19 06:08 05/21/19 06:08 Abnormal lab results 05/20/19 05/20/19 05/21/19 Range/Units 16:59 21:56 06:08 RBC 5.17 H (3.65-5.03) M/mm3 Hgb 14.6 H (10.1-14.3) gm/dl Hct 44.0 H (30.3-42.9) % Carbon Dioxide (22-30) mmol/L Creatinine (0.7-1.2) mg/dL Glucose (65-100) mg/dL POC Glucose 201 H 178 H (70-105) Calcium (8.4-10.2) mg/dL 05/21/19 05/21/19 05/21/19 Range/Units 06:08 08:54 11:50 RBC (3.65-5.03) M/mm3 Hgb (10.1-14.3) gm/dl Hct (30.3-42.9) % Carbon Dioxide 20 L (22-30) mmol/L Creatinine 0.6 L (0.7-1.2) mg/dL Glucose 203 H (65-100) mg/dL POC Glucose 234 H 272 H (70-105) Calcium 8.2 L (8.4-10.2) mg/dL All other labs normal.
--- NOTE | 2019-05-21 16:24 | Consultation ---
History of Present Illness - Reason for Consult Consult date: 05/21/19 Reason for consult: PSYCHIATRIC ASSESSMENT - Chief Complaint Chief complaint: ANXIETY, DEPRESSION - History of Present Psychiatric Illness Ms rico is a 44 year ols aaa female aaox4, he apperas olderthan her age , dress appriopriately for the weather. she stated that she came to the hospital for others things and not psy issues. she however said she has been seeing her psychiatric doctor and just had her medication refills she said she is compliant . she reports that she is eating well and sleeping and that she sometimes hear voices and sometimes thoughts of hurting herself but that is chronic and she never acts on it because she knows its not real. she reports that if she felt like acting on it she knows what to do. Diagnoses: anxiety and depression Suicide attempts or Self-harm behavior; no Prior psychiatric hospitalizations: yes Substance Abuse history:no Previous psychiatric medications tried:yes Outpatient treatment: yes PAST MEDICAL HISTORY: Family Psychiatric History None reported or documented SOCIAL HISTORY Marital Status: single Living Arrangements:self Employment Status:unemployed Access to guns/weapons: no Education: 12th History of Abuse:no Legal History: no REVIEW OF SYSTEMS Constitutional: Negative for weight loss ENT: Negative for stridor Respiratory: Negative for cough or hemoptysis All other systems reviewed and are negative MENTAL STATUS General Appearance and Behavior: quite cooperative Cooperation: Cooperative Psychomotor Behavior: within normal limits Mood: OK Affect and affective range: Congruent with stated mood Thought Process: Fluent/Logical and Goal-directed Thought Content: Within reality Speech: Normal volume and Regular rate and rhythm Intellectual Functioning Average Suicidal Ideation: Denies SI Homicidal Ideation: Denies HI Impulse Control: intact Insight and Judgment: normal insight and judgment Memory: Normal Attention: Normal Orientation: alert and oriented In order to evaluate the patient's decision-making capacity, I evaluated for phan areas of decision-making. These areas are understanding (of relevant facts about his own health), expressing a choice, appreciation (of how the relevant facts have an impact on the choice), and explaining his reasoning behind the choice (i.e. Pros vs Cons of choice). The results of this evaluation are below: Based on my evaluation, the patient is able to demonstrate understanding, appreciation and reasoning regarding their medical condition and need for treatment. At this time I do believe that the patient has decision-making capacity. Recommendation Maintain good and stable mental health. Plan of Treatment:patient will continue her current treatment regimen The patient should be compliant with medications, not to use drugs and not to drink alcohol. The patient understands that if suicidal ideas, homicidal ideas, or any endangering thoughts arise, the patient should immediately seek for emergent assistance including but not limited to crisis hot line and emergency room. Follow up with outpatient Psychiatrist and PCP within 7 - 14 days of discharge. Medications and Allergies Allergies Allergy/AdvReac Type Severity Reaction Status Date / Time apple Allergy Swelling Verified 04/22/15 07:14 Home Medications Medication Instructions Recorded Confirmed Last Taken Type hydroCHLOROthiazide [HCTZ] 25 mg PO QDAY #30 tablet 04/26/15 05/19/19 Unknown Rx AtorvaSTATin [Lipitor] 40 mg PO DAILY 05/19/19 05/19/19 Unknown History Benztropine [Cogentin] 1 mg PO DAILY 05/19/19 05/19/19 Unknown History Clonidine HCl [Catapres] 0.3 mg PO Q8HR 05/19/19 05/19/19 Unknown History Gabapentin 300 mg PO Q8HR 05/19/19 05/19/19 Unknown History Glimepiride [Amaryl] 4 mg PO DAILY 05/19/19 05/19/19 Unknown History Metformin HCl [metFORMIN] 1,000 mg PO BIDWM 05/19/19 05/19/19 Unknown History Perphenazine 2 mg PO TID 05/19/19 05/19/19 Unknown History Propranolol [Inderal] 80 mg PO BID 05/19/19 05/19/19 Unknown History SEROquel 100 mg PO QHS 05/19/19 05/19/19 Unknown History Sertraline [Zoloft] 100 mg PO QDAY 05/19/19 05/19/19 Unknown History amLODIPine 10 mg PO QDAY 05/19/19 05/19/19 Unknown History methIMAzole [Tapazole] 15 mg PO Q24HR #90 tablet 05/21/19 Unknown Rx Active Meds: Active Medications Acetaminophen (Tylenol) 650 mg PO Q4H PRN PRN Reason: Pain MILD(1-3)/Fever >100.5/FLORES Amlodipine Besylate (Amlodipine) 10 mg PO QDAY [facility] Last Admin: 05/21/19 09:26 Dose: 10 mg Documented by: Atorvastatin Calcium (Lipitor) 40 mg PO DAILY [facility] Last Admin: 05/21/19 09:25 Dose: 40 mg Documented by: Benztropine Mesylate (Cogentin) 1 mg PO DAILY [facility] Last Admin: 05/21/19 09:21 Dose: 1 mg Documented by: Clonidine HCl (Catapres) 0.3 mg PO Q8HR [facility] Last Admin: 05/21/19 06:32 Dose: 0.3 mg Documented by: Dextrose (D50w (25gm) Syringe) 50 ml IV Q30MIN PRN; Protocol PRN Reason: Hypoglycemia Enoxaparin Sodium (Enoxaparin) 40 mg SUB-Q QDAY@2200 [facility] Last Admin: 05/20/19 22:34 Dose: 40 mg Documented by: Gabapentin (Gabapentin) 300 mg PO Q8HR [facility] Last Admin: 05/21/19 06:33 Dose: 300 mg Documented by: Glimepiride (Amaryl) 4 mg PO QDDIAB [facility] Last Admin: 05/21/19 09:25 Dose: 4 mg Documented by: Hydralazine HCl (Apresoline) 10 mg IV Q4HR PRN PRN Reason: BP >160/100 Hydrochlorothiazide (Hctz) 25 mg PO QDAY [facility] Last Admin: 05/21/19 09:25 Dose: 25 mg Documented by: Sodium Chloride (Nacl 0.9% 1000 Ml) 1,000 mls @ 75 mls/hr IV DIRECT [facility] Last Admin: 05/21/19 06:33 Dose: 75 mls/hr Documented by: Insulin Human Lispro (Humalog) 0 unit SUB-Q ACHS [facility]; Protocol Last Admin: 05/21/19 09:10 Dose: 2 unit Documented by: Metformin HCl (Glucophage) 1,000 mg PO BIDDIAB [facility] Last Admin: 05/21/19 09:25 Dose: 1,000 mg Documented by: Methimazole (Tapazole) 15 mg PO Q24HR [facility] Last Admin: 05/21/19 09:23 Dose: 15 mg Documented by: Ondansetron HCl (Zofran) 4 mg IV Q8H PRN PRN Reason: Nausea And Vomiting Last Admin: 05/20/19 00:04 Dose: 4 mg Documented by: Perphenazine (Trilafon) 2 mg PO TID [facility] Last Admin: 05/21/19 09:13 Dose: 2 mg Documented by: Propranolol HCl (Inderal La) 160 mg PO QDAY [facility] Last Admin: 05/21/19 09:19 Dose: 160 mg Documented by: Quetiapine Fumarate (Seroquel) 100 mg PO QHS [facility] Last Admin: 05/20/19 22:35 Dose: 100 mg Documented by: Sertraline HCl (Zoloft) 100 mg PO QDAY [facility] Last Admin: 05/21/19 09:23 Dose: 100 mg Documented by: Sodium Chloride (Sodium Chloride Flush Syringe 10 Ml) 10 ml IV BID [facility] Last Admin: 05/21/19 09:26 Dose: 10 ml Documented by: Sodium Chloride (Sodium Chloride Flush Syringe 10 Ml) 10 ml IV PRN PRN PRN Reason: LINE FLUSH Mental Status Exam - Vital signs Last Vital Signs Temp 97.9 F 05/21/19 09:45 Pulse 77 05/21/19 09:45 Resp 18 05/21/19 09:45 BP 170/94 05/21/19 09:45 Pulse Ox 98 05/21/19 09:45 Results Result Diagrams: 05/21/19 06:08 05/21/19 06:08 Abnormal lab results 05/20/19 05/20/19 05/21/19 Range/Units 16:59 21:56 06:08 RBC 5.17 H (3.65-5.03) M/mm3 Hgb 14.6 H (10.1-14.3) gm/dl Hct 44.0 H (30.3-42.9) % Carbon Dioxide (22-30) mmol/L Creatinine (0.7-1.2) mg/dL Glucose (65-100) mg/dL POC Glucose 201 H 178 H (70-105) Calcium (8.4-10.2) mg/dL 05/21/19 05/21/19 05/21/19 Range/Units 06:08 08:54 11:50 RBC (3.65-5.03) M/mm3 Hgb (10.1-14.3) gm/dl Hct (30.3-42.9) % Carbon Dioxide 20 L (22-30) mmol/L Creatinine 0.6 L (0.7-1.2) mg/dL Glucose 203 H (65-100) mg/dL POC Glucose 234 H 272 H (70-105) Calcium 8.2 L (8.4-10.2) mg/dL All other labs normal.
== END 2019-05-21 15:00 | disposition home or self-care (01) | DRG 304 ==
LOC: ED 09:51 → 4A 14:16
PROVIDERS: ADMIT Internal Medicine; ATTEND Internal Medicine
DX: I16.0 Hypertensive urgency (principal); E05.01 Thyrotoxicosis with diffuse goiter with thyrotoxic crisis or storm; R65.10 Systemic inflammatory response syndrome (SIRS) of non-infectious origin without acute organ dysfunction; E11.9 Type 2 diabetes mellitus without complications; E66.9 Obesity, unspecified; I10 Essential (primary) hypertension; F12.90 Cannabis use, unspecified, uncomplicated; Z79.899 Other long term (current) drug therapy; Z68.31 Body mass index [BMI] 31.0-31.9, adult; Z71.3 Dietary counseling and surveillance; Z90.49 Acquired absence of other specified parts of digestive tract; Z82.49 Family history of ischemic heart disease and other diseases of the circulatory system
CPT/HCPCS: 36415; 70450; 74019; 80048; 80053; 80307; 82962; 83036; 84439; 84443; 84484; 84703; 85025; 85027; 85610; 87116; 93005; 93010; G0378; A9270-GY; J1650; J1815; J2405; J7030

== ENCOUNTER 2021-10-13 04:07 | Emergency (ER) | payer SELFPAY ==
[2021-10-13] MEDS ORDERED: ASPIRIN 325 MG TAB PO ONE (04:31)
--- NOTE | 2021-10-13 05:25 | XRay Report ---
CHEST 2 VIEWS INDICATION / CLINICAL INFORMATION: CHEST PAIN. COMPARISON: Chest x-ray 04/22/2015 FINDINGS: SUPPORT DEVICES: None. HEART / MEDIASTINUM: Heart size is within normal limits. LUNGS / PLEURA: Bilateral interstitial and airspace opacities are demonstrated. Interstitial opacitie s linear and more peripheral in location. No pneumothorax. BONES: No significant osseous abnormality. ADDITIONAL FINDINGS: No significant additional findings. IMPRESSION: 1. Opacities suggesting pulmonary edema, infection is not excluded. Signer Name: Flako Tavarez II, MD Signed: 10/13/2021 5:21 AM Workstation Name: [id number]
[2021-10-13 06:24] LABS: Basophils # (Auto) 0.2 K/mm3 (0.0-0.1); Eosinophils # (Auto) 0.4 K/mm3 (0.0-0.4); Eosinophils % (Auto) 2.4 % (0.0-4.3); Hematocrit 45.3 % (30.3-42.9); Hemoglobin 14.8 gm/dl (10.1-14.3); Lymphocytes # (Auto) 3.6 K/mm3 (1.2-5.4); Lymphocytes % (Auto) 21.4 % (13.4-35.0); Mean Corpuscular HGB Conc 33 % (30-34); Mean Corpuscular Volume 86 fl (79-97); Monocytes # (Auto) 0.7 K/mm3 (0.0-0.8); Monocytes % (Auto) 4.4 % (0.0-7.3); Platelet Count 420 K/mm3 (140-440); Red Blood Count 5.27 M/mm3 (3.65-5.03); Red Cell Distribution Width 14.3 % (13.2-15.2)
[2021-10-13 06:43] LABS: Alanine Aminotransferase 18 units/L (7-56); Albumin 3.7 g/dL (3.9-5); BUN/Creatinine Ratio 13; Blood Urea Nitrogen 16 mg/dL (7-17); Calcium 9.1 mg/dL (8.4-10.2); Hemolysis Index 5
[2021-10-13] MEDS ORDERED: ASPIRIN 325 MG TAB PO SCH (07:30)
--- NOTE | 2021-10-13 10:45 | Electrocardiograph Report ---
[facility] Test Date: 2021-10-13 Test Time: 04:20:13 Pat Name: JAYLON RUCKER Department: Room: Gender: F Material Control Manager: ITZEL : 1975 Requested By: ED DOC Order Number: [id number] Reading MD: Magdiel Marcial Measurements Intervals [place] Rate: 104 P: 74 DC: 139 QRS: 66 QRSD: 90 T: 50 QT: 403 QTc: 531 Interpretive Statements Sinus tachycardia Biatrial enlargement Left ventricular hypertrophy No previous ECG available for comparison Electronically Signed On 10-13-2021 10:45:10 EDT by Magdiel Marcial
[2021-10-13] MEDS ORDERED: cloNIDine 0.2 MG TAB PO ONE (15:35)
--- NOTE | 2021-10-13 15:40 | Emergency Department Report ---
ED Chest Pain HPI - General Chief Complaint: Chest Pain Stated Complaint: CHEST PAIN,NELSY Time Seen by Provider: 10/13/21 15:32 Source: patient Mode of arrival: Ambulatory Limitations: No Limitations - History of Present Illness Initial Comments: 46-year-old female who presents with chest pain has been going on for the last 24 hours intermittently progressive getting worse. Patient also reports elevated blood pressure with a systolic blood pressure more than 200 at home. Patient takes clonidine as she reports that she is very compliant with the med ication. Patient described it as pressure in the middle of her chest. Patient has been given aspirin and have EKG. No other modifying or associated factors reported. MD Complaint: chest pain - Related Data Home Medications Medication Instructions Recorded Confirmed Last Taken AtorvaSTATin [Lipitor] 40 mg PO DAILY 05/19/19 05/19/19 Unknown Benztropine [Cogentin] 1 mg PO DAILY 05/19/19 05/19/19 Unknown Gabapentin 300 mg PO Q8HR 05/19/19 05/19/19 Unknown Glimepiride [Amaryl] 4 mg PO DAILY 05/19/19 05/19/19 Unknown Metformin HCl [metFORMIN] 1,000 mg PO BIDWM 05/19/19 05/19/19 Unknown Perphenazine 2 mg PO TID 05/19/19 05/19/19 Unknown SEROquel 100 mg PO QHS 05/19/19 05/19/19 Unknown Sertraline [Zoloft] 100 mg PO QDAY 05/19/19 05/19/19 Unknown amLODIPine 10 mg PO QDAY 05/19/19 05/19/19 Unknown cloNIDine HCL [Catapres] 0.3 mg PO Q8HR 05/19/19 05/19/19 Unknown propranoloL [Inderal] 80 mg PO BID 05/19/19 05/19/19 Unknown Previous Rx's Medication Instructions Recorded Last Taken Type hydroCHLOROthiazide [HCTZ] 25 mg PO QDAY #30 tablet 04/26/15 Unknown Rx methIMAzole [Tapazole] 15 mg PO Q24HR #90 tablet 05/21/19 Unknown Rx Allergies Allergy/AdvReac Type Severity Reaction Status Date / Time apple Allergy Swelling Verified 04/22/15 07:14 Heart Score - HEART Score History: Slightly suspicious EKG: Normal Age: 45-65 Risk factors: 1-2 risk factors Troponin: < normal limit HEART Score: 2 - EKG Read Time Time EKG Completed: 16:20 EKG Read Time: 16:40 - Critical Actions Critical Actions: 0-3 pts:0.9-1.7%risk of adverse cardiac event.Candidate for discharge ED Review of Systems ROS: Stated complaint: CHEST PAIN,NELSY Other details as noted in HPI Comment: All other systems reviewed and negative Cardiovascular: chest pain, other (hypertensive urgency ) ED Past Medical Hx - Past Medical History Hx Hypertension: Yes Hx Congestive Heart Failure: No Hx Diabetes: Yes Hx Asthma: No Hx COPD: No Additional medical history: Grave's Disease - Surgical History Hx Appendectomy: Yes - Social History Smoking Status: Never Smoker - Medications Home Medications: Home Medications Medication Instructions Recorded Confirmed Last Taken Type hydroCHLOROthiazide [HCTZ] 25 mg PO QDAY #30 tablet 04/26/15 05/19/19 Unknown Rx AtorvaSTATin [Lipitor] 40 mg PO DAILY 05/19/19 05/19/19 Unknown History Benztropine [Cogentin] 1 mg PO DAILY 05/19/19 05/19/19 Unknown History Gabapentin 300 mg PO Q8HR 05/19/19 05/19/19 Unknown History Glimepiride [Amaryl] 4 mg PO DAILY 05/19/19 05/19/19 Unknown History Metformin HCl [metFORMIN] 1,000 mg PO BIDWM 05/19/19 05/19/19 Unknown History Perphenazine 2 mg PO TID 05/19/19 05/19/19 Unknown History SEROquel 100 mg PO QHS 05/19/19 05/19/19 Unknown History Sertraline [Zoloft] 100 mg PO QDAY 05/19/19 05/19/19 Unknown History amLODIPine 10 mg PO QDAY 05/19/19 05/19/19 Unknown History cloNIDine HCL [Catapres] 0.3 mg PO Q8HR 05/19/19 05/19/19 Unknown History propranoloL [Inderal] 80 mg PO BID 05/19/19 05/19/19 Unknown History methIMAzole [Tapazole] 15 mg PO Q24HR #90 tablet 05/21/19 Unknown Rx ED Physical Exam - General Limitations: No Limitations General appearance: alert, in no apparent distress - Head Head exam: Present: normal inspection - Eye Eye exam: Present: normal appearance Pupils: Present: normal accommodation - ENT ENT exam: Present: normal exam, normal orophraynx - Neck Neck exam: Present: normal inspection, full ROM. Absent: tenderness - Respiratory Respiratory exam: Present: normal lung sounds bilaterally. Absent: respiratory distress, accessory muscle use - Cardiovascular Cardiovascular Exam: Present: regular rate, normal rhythm, normal heart sounds - GI/Abdominal GI/Abdominal exam: Present: soft, normal bowel sounds. Absent: distended, tenderness - Extremities Exam Extremities exam: Present: normal inspection, normal capillary refill. Absent: full ROM - Back Exam Back exam: Absent: tenderness - Neurological Exam Neurological exam: Present: alert, oriented X3 - Psychiatric Psychiatric exam: Present: normal affect - Skin Skin exam: Present: warm, normal color ED Course Vital Signs 10/13/21 10/13/21 10/13/21 04:11 10:42 15:56 Temperature 98.6 F Pulse Rate 108 H 108 H 98 H Respiratory 22 20 Rate Blood Pressure 222/153 212/130 Blood Pressure 212/135 [Right] O2 Sat by Pulse 95 100 Oximetry 10/13/21 10/13/21 16:20 17:00 Temperature Pulse Rate 100 H 96 H Respiratory 16 Rate Blood Pressure 214/119 Blood Pressure 169/97 [Right] O2 Sat by Pulse 99 Oximetry - Reevaluation(s) Reevaluation #1: 10/13/21 15:40 Pickup this patient when i resume shift at 3PM-- with chest pain and noted with hypertensive urgency-- given labetolol 20 mg and Clonidine 0.2 mg PO x 1-- Reevaluation #2: 10/13/21 17:42 Patient blood pressure improved to 169/97 after the initial treatment with labetalol and clonidine--but also noted with very low TSH at 0.116 so we will go ahead and order free T4 for further evaluation. Patient is also admitted with elevated white count of 17,000 and H&H at 14.8/45.3 this could be as a result of dehydration and not infectious process --we will continue to monitor. Reevaluation #3: 10/13/21 21:15 Noted with elevated TSH but normal free T4 no issue there--blood pressure is improved to 169/97 mmHg--so patient is stable enough to be discharged home to continue antihypertensive as prescribed by her primary doctor. Reevaluation #4: 10/13/21 21:19 Noted with negative -3 serial troponin with reassuring EKG without any ST elevation--patient reassured MAITE score - Maite Score Age > 65: (0) No Aspirin use within the Past 7 Days: (0) No 3 or more CAD Risk Factors: (0) No 2 or more Angina events in past 24 hrs: (0) No Known CAD with more than 50% Stenosis: (0) No Elevated Cardiac Markers: (0) No ST Deviation Greater than 0.5mm: (0) No MAITE Score: 0 ED Medical Decision Making - Lab Data Result diagrams: 10/13/21 05:38 10/13/21 05:38 Critical care attestation.: If time is entered above; I have spent that time in minutes in the direct care of this critically ill patient, excluding procedure time. ED Disposition Clinical Impression: Hypertensive urgency Chest pain Qualifiers: Chest pain type: unspecified Qualified Code(s): R07.9 - Chest pain, unspecified Disposition: 01 HOME / SELF CARE / HOMELESS Is pt being admited?: No Does the pt Need Aspirin: No Condition: Stable Instructions: Nonspecific Chest Pain, Adult, [id number], Hypertension, Adult, [id number], Preventing Hypertension, Managing Your Hypertension Additional Instructions: Continue your antihypertensive as prescribed by your primary doctor especially the clonidine that can cause rebound hypertension if not taking as he supposed to be. Call and schedule follow-up with your primary doctor in the next 3 to 5 days for progress Please do not hesitate to call or return to emergency room if your symptoms worsen Referrals: PRIMARY CARE, [Primary Care Provider] - 3-5 Days Time of Disposition: 21:18
[2021-10-13 16:15] LABS: INR 0.83 (0.87-1.13)
[2021-10-13 16:16] LABS: Partial Thromboplastin Time 27.6 Sec. (24.2-36.6)
[2021-10-13 23:49] VITALS: BP 140/82
== END 2021-10-13 23:49 | disposition home or self-care (01) ==
LOC: ED 04:07
DX: I16.0 Hypertensive urgency (principal); R07.89 Other chest pain; E11.9 Type 2 diabetes mellitus without complications; Z91.018 Allergy to other foods
CPT/HCPCS: 36415; 71046; 80053; 82140; 84439; 84443; 84484; 85025; 85610; 85730; 87040; 93005; 96374; 99284; J3490